=== PATIENT | female | born 1950 | race Caucasian/White ===

== ENCOUNTER 2016-08-26 09:46 | Outpatient (CLI) | payer MEDICARE ==
[2016-08-26 11:08] LABS: #Basophils 0.1 thou/uL (0.0-0.2); #Eosinphils 0.2 thou/uL (0.0-0.7); #Lymphocytes 1.9 thou/uL (1.20-3.40); #Monocytes 0.4 thou/uL (0.11-0.59); #Neutrophils 4.3 thou/uL (1.40-6.50); %Basophils 1.1 % (0.0-1.0); %Eosinophils 3.2 % (0.0-10.0); %Monocytes 5.8 % (0.0-10.0); Hematocrit 42.5 % (36.0-47.0); Mean Platelet Volume 6.9 fL (7.4-10.4); Red Blood Cell (RBC) Count 4.14 mill/uL (4.20-5.40); White Blood Cell (WBC) Count 6.9 thou/uL (4.8-10.8)
[2016-08-26 11:24] LABS: ALT (SGPT) 23 U/L (0-55); AST (SGOT) 18 U/L (5-34); Alkaline Phosphatase 78 U/L (40-150); Anion Gap 20 mmol/L (10-20); BUN (Urea Nitrogen) 35 mg/dL (9.8-20.1); Bilirubin, Total 0.5 mg/dL (0.2-1.2); Calc. Creatinine Clearance 0 mL/min (70-130); Calcium 9.8 mg/dL (7.8-10.44); Carbon Dioxide 26 mmol/L (23-31); Chloride 102 mmol/L (98-107); Estimated GFR-MDRD 52; Globulin 3.5 g/dL (2.4-3.5); LDL Cholesterol, Calculated 151 mg/dL; Protein, Total 7.7 g/dL (5.8-8.1)
[2016-08-26 11:41] LABS: Hemoglobin A1c 7.1 % (4.0-6.0)
== END 2016-08-26 09:47 ==
LOC: HPCALD 09:46
PROVIDERS: ATTEND Family Medicine
DX: E78.5 Hyperlipidemia, unspecified (principal); D53.9 Nutritional anemia, unspecified; E11.9 Type 2 diabetes mellitus without complications
CPT/HCPCS: 36415; 80053; 80061; 82607; 82746; 83036; 85025

== ENCOUNTER 2016-10-05 11:59 | Outpatient (CLI) | payer MEDICARE | END 2016-10-05 12:00 | LOC: HPCALD 11:59 | PROVIDERS: ATTEND Family Medicine | DX: N39.0 Urinary tract infection, site not specified (principal) | CPT/HCPCS: 87086 ==

== ENCOUNTER 2017-02-24 10:56 | Outpatient (CLI) | payer MEDICARE ==
[2017-02-24 12:33] LABS: #Basophils 0.1 thou/uL (0.0-0.2); #Eosinphils 0.3 thou/uL (0.0-0.7); #Lymphocytes 1.9 thou/uL (1.20-3.40); #Monocytes 0.4 thou/uL (0.11-0.59); #Neutrophils 5.3 thou/uL (1.40-6.50); %Basophils 0.8 % (0.0-1.0); %Eosinophils 3.4 % (0.0-10.0); %Monocytes 5.2 % (0.0-10.0); %Neutrophils 66.6 % (42.0-75.0); Hemoglobin 12.7 g/dL (12.0-16.0); Mean Corpuscular HGB CONC 33.9 g/dL (32.0-36.0); Mean Corpuscular Hemoglobin 33.9 pg (27.0-31.0); Mean Platelet Volume 7.1 fL (7.4-10.4); Platelet Count 283 thou/uL (130-400); RBC Distribution Width 12.5 % (11.5-14.5); Red Blood Cell (RBC) Count 3.74 mill/uL (4.20-5.40); White Blood Cell (WBC) Count 7.9 thou/uL (4.8-10.8)
[2017-02-24 12:53] LABS: ALT (SGPT) 18 U/L (8-55); AST (SGOT) 13 U/L (5-34); Alkaline Phosphatase 61 U/L (40-150); Anion Gap 18 mmol/L (10-20); BUN (Urea Nitrogen) 36 mg/dL (9.8-20.1); Bilirubin, Total 0.5 mg/dL (0.2-1.2); Calc. Creatinine Clearance 0 mL/min (70-130); Calcium 9.2 mg/dL (7.8-10.44); Carbon Dioxide 27 mmol/L (23-31); Chloride 103 mmol/L (98-107); Cholesterol 257 mg/dl (< 200 Desired); Estimated GFR-MDRD 55; Globulin 2.6 g/dL (2.4-3.5); Glucose 117 mg/dL (80-115); HDL Cholesterol 43 mg/dL (>60 Neg Risk); LDL Cholesterol, Calculated 174 mg/dL; Potassium 3.5 mmol/L (3.5-5.1); Protein, Total 6.6 g/dL (6.0-8.3); Sodium 144 mmol/L (136-145); Triglycerides 200 mg/dL (Less than 150)
[2017-02-24 13:04] LABS: Hemoglobin A1c 8.3 % (4.0-6.0)
== END 2017-02-24 10:57 | disposition home or self-care (01) ==
LOC: HPCALD 10:56
PROVIDERS: ATTEND Family Medicine
DX: E78.5 Hyperlipidemia, unspecified (principal); E11.9 Type 2 diabetes mellitus without complications; I10 Essential (primary) hypertension
CPT/HCPCS: 36415; 80053; 80061; 83036; 85025

== ENCOUNTER 2019-06-24 13:38 | Emergency (ER) | payer MEDICARE ==
[2019-06-24] MEDS ORDERED: Triple Antibiotic Oint 1 GM Packet ONE (14:18)
[2019-06-24] MEDS ORDERED: Morphine 2 MG/ML SYRINGE ONE (14:22)
--- NOTE | 2019-06-24 18:40 | RAD ---
RIGHT HUMERUS 2 VIEWS: Date: 06/24/19 A fracture is present through the surgical neck of the humerus, as well as the greater tubercle of th e humerus. There is slight displacement of each. The elbow is not fully evaluated on this study. IMPRESSION: 3-part surgical neck fracture POS: HOME
== END 2019-06-24 14:45 | disposition home or self-care (01) ==
LOC: BURERS 13:38
DX: S42.231A 3-part fracture of surgical neck of right humerus, initial encounter for closed fracture (principal); S01.21XA Laceration without foreign body of nose, initial encounter; S80.211A Abrasion, right knee, initial encounter; E11.9 Type 2 diabetes mellitus without complications; E78.5 Hyperlipidemia, unspecified; E78.00 Pure hypercholesterolemia, unspecified; I10 Essential (primary) hypertension; E66.9 Obesity, unspecified; W18.30XA Fall on same level, unspecified, initial encounter; W22.8XXA Striking against or struck by other objects, initial encounter; Y92.59 Other trade areas as the place of occurrence of the external cause
CPT/HCPCS: 96372; J2270